=== PATIENT | female | born 2000 | race Two or more races ===

== ENCOUNTER 2025-09-07 20:09 | Emergency (ER) | payer MEDICAID, SELFPAY ==
[2025-09-07 20:10] VITALS: BMI 26.5
[2025-09-07 20:14] VITALS: BP 103/69; PULSE 99; RESP 16; TEMP 36.7; O2SAT 95
--- NOTE | 2025-09-07 20:21 | EDNOTE_ITS ---
ED Abdominal Pain RME/HPI General Chief Complaint: Abdominal Pain Stated complaint: ABD PAIN Time seen by provider: 09/07/25 20:20 Arrival date/time: 09/07/25 20:09 RME / HPI RME / HPI narrative: 24-year-old female with past medical history of , LMP 3 days ago, presents to the ER complaining of abdominal bloating for the past 3 days, patient has been passing gas without difficulty however this is on relieving, she had 1 bowel movement. Denies any fever, nausea, vomiting, abnormal vaginal discharge, dysuria. Related Data Previous Rx's ?Medication ?Instructions ?Recorded cephalexin 500 mg capsule 500 mg PO QID 7 days #28 cap s 09/07/25 Allergies Allergy/AdvReac Type Severity Reaction Status Date / Time No Known Allergies Allergy Verified 09/07/25 20:10 Course Quality Measures none Orders Category Date Time Status NPO NOW Care 09/07/25 20:23 Active Diet NPO (NOW) Diet 09/07/25 20:[address] abdomen pelvis wo con Stat Exams 09/07/25 20:23 Completed US abdomen limited Stat Exams 09/07/25 22:15 Completed CBC Stat Lab 09/07/25 20:28 Completed CMP [Comprehensive Metabolic Panel] Stat Lab 09/07/25 20:28 Completed HCG,Qualitative Serum Stat Lab 09/07/25 20:28 Completed Lipase Stat Lab 09/07/25 20:28 Completed Urinalysis Stat Lab 09/07/25 20:37 Completed Urine Culture Stat Lab 09/07/25 20:37 Received HYDROcodone*/APAP 5/325 [[place] 5/325] Med 09/07/25 22:26 Discontinued 1 tab PO X1 ONE Ketorolac Inj [Toradol Inj] Med 09/07/25 22:15 Discontinued 30 mg IM X1 ONE Simethicone [Mylicon Chew] Med 09/07/25 20:23 Discontinued 80 mg PO X1 ONE mg Hyd/Al Hyd/Janet Susp [Maalox Susp] Med 09/07/25 20:23 Discontinued 30 ml PO X1 ONE Reevaluation(s) Reevaluation #1: At the time of reassessment, the patient remains alert and oriented ?3 with GCS 15. Vitals are normal, pain is controlled, and the patient is tolerating oral intake without nausea or vomiting. The patient is agreeable to discharge and verbalizes understanding of the diagnosis, studies, treatment plan, medications (including side effects/precautions), and strict ER return precautions as d iscussed in the ED. All concerns were addressed, and the patient is comfortable with the plan. Time: 23:46 Vital Signs Vital signs: Vital Signs Temperature 98.1 F 09/07/25 20:14 Pulse Rate 99 09/07/25 20:14 Respiratory Rate 16 09/07/25 20:14 Blood Pressure 103/69 09/07/25 20:14 Pulse Oximetry (%) 95 09/07/25 20:14 Oxygen Delivery Method Room Air 09/07/25 20:14 Abdominal Pain MDM MDM Narrative MDM Narrative:: MDM: The patient presents with abdominal pain without definite explanation found on evaluation today. However, there are no signs of peritonitis or other life- threatening or serious etiology. UA concerning for mild pyuria with 6 WBCs cannot exclude cystitis after discussion of risk and benefits of antibiotics empirically with patient she requested treatment. CT and ultrasound also noted cholelithiasis with a normal appendix and no signs of acute cholecystitis or any other acute intra-abdominal or pelvic abnormality. Serial abdominal exams benign without peritonitis and patient tolerating p.o. without difficulty. I considered admission; however, given negative work up and imaging, admission is not indicated. The patient appears stable for discharge and has been instructed to return for re-evaluation immediately if the symptoms worsen or change in any way. If the symptoms are not resolved in 24-48 hours, the patient is asked to get rechecked by their PMD or return to the ED. Patient data External records reviewed:: [facility] previous records Clinical information provided by:: patient Social determinants that could affect healthcare access:: none Patient has the following chronic illnesses:: As noted How is presenting disease/condition affected by chronic disease/condition?: uneffected by Evaluation data The following diagnostics were reviewed and interpreted by me:: lab results, radiology exam(s) and other (specify) Lab and/or radiology exams considered but not ordered:: Additional Labs and radiology considered, but not ordered as they were not clinically indicated at this time. Interpretation Summary: CBC with mild leukocytosis of 12.2, neutrophil number mildly elevated 8.2, immature granulocytes noted at 0.02 however no left shift and remainder of CBC, CMP, lipase without severe metabolic or electrolyte abnormality UA concerning for 6 WBCs in the urine and cannot exclude UTI, risk and benefits of empiric antibiotics discussed with patient is requesting treatment Medications / Prescriptions Medications or Prescriptions considered but not ordered:: I considered prescription management (both outpatient prescriptions AND drug treatment in the ER) and decided that this was necessary and was prescribed as charted. Medication administrations:: Medication Administration History Discontinued Medications Hydrocodone Bitart/Acetaminophen (Hydrocodone/Apap 5/325 Tablet) 1 tab PO X1 ONE Stop: 09/07/25 22:27 Last Admin: 09/07/25 22:45 Dose: 1 tab Documented By: JACK Al Hydrox/Mg Hydrox/Simethicone (Mg Hyd/Al Hyd/Janet (Maalox Reg) Susp 30 Ml Udc) 30 ml PO X1 ONE Stop: 09/07/25 20:24 Last Admin: 09/07/25 21:51 Dose: Not Given Documented By: OA Non-Admin Reason: Held for Procedure Ketorolac Tromethamine (Ketorolac Inj 30 Mg/Ml Vial) 30 mg IM X1 ONE Stop: 09/07/25 22:16 Last Admin: 09/07/25 22:59 Dose: 30 mg Documented By: JACK Simethicone (Simethicone 80 Mg Chew) 80 mg PO X1 ONE Stop: 09/07/25 20:24 Last Admin: 09/07/25 21:51 Dose: Not Given Documented By: OA Non-Admin Reason: Held for Procedure As noted Consultations Consultation(s) initiated? (list below): No Diagnosis Differential diagnosis abdominal pain: abdominal pain, acute appendicitis and gastroenteritis Most likely diagnosis given after review of the tests above:: Abdominal pain of unclear etiology Admission Indicated Admission indicated?: not indicated Admission Request Was there a request for admission?: No Disposition Plan Disposition Plan: Discharge Discharge Attestation Discharge Attestation: The patient and all family members were given an opportunity to ask questions and understood the discharge instructions. Discharge instructions specifically effects, indications for sooner follow up or return to the emergency department, and the expected course of current diagnosis. Patient condition: Stable Discharge Plan Plan Patient Disposition: HOME (Self Care) Patient condition on transfer: Stable Prescriptions/Referrals Prescriptions/Med Rec: New cephalexin 500 mg capsule 500 mg PO QID 7 Days Qty: 28 0RF Referrals: Lindsey James PA-C [Primary Care Provider, Family Practice] - In 1 week Problem List Clinical Impression: Abdominal pain, Cholelithiasis, Pyuria Patient/Caregiver Discharge Instructions Education Materials: Abdominal Pain, Treating Gallstones, ED CYSTITIS Female Adult Additional Instructions: Follow up with your primary medical doctor within 24 hours. Return to the Emergency Room immediately for any new, worsening, continuing symptoms or any concerns at all. Return to the Emergency Room within 24 hours if you are unable to follow up with your primary medical doctor within 24 hours. Follow-up with a general surgeon within 1 week. Eat a bland diet. Do not eat fatty foods. Print Language: Vincentian Stand Alone Forms: [employer] Award Info., Patient Portal Info Letter PA/SANITATION OFFICER Supervising Physician PA/SANITATION OFFICER Supervising Physician: Dr. Patterson
--- NOTE | 2025-09-07 20:23 | XR_ITS ---
Examination: CT abdomen and pelvis without contrast. Coronal 3-D reconstructions. Sagittal 2-D reconstructions. Date and time of exam: September 07, 2025, 2142 hours INDICATIONS: Onset lower abdominal pain beginning 2 days ago CTDI: vol (mGy): 7.18 DLP: (mGycm): 360 Technique: Axial images of the abdomen have been obtained, 3 mm slice thickness Intravenous contrast material has not been administered. Low dose protocols were performed. One or more of the following dose reduction techniques were used; automated exposure control, adjustment of the mA and/or KV according to patient size, use of iterative reconstruction technique. Findings: No visualized liver or splenic lesion Gallstones Gallbladder wall appears thickened No pancreatic or adrenal mass No renal or ureteral calculi No bowel obstruction Normal appendix No diverticulitis No pelvic mass Bladder intact IMPRESSION: Cholelithiasis, recommend hepatobiliary sonography to exclude cholecystitis Negative for pancreatitis No renal or ureteral calculi, no hydronephrosis Normal appendix
[2025-09-07 20:37] LABS: Basophils # (Auto) 0.1 Thou/mm3 (0.0-0.2); Basophils % (Auto) 0 % (0-2.5); Eosinophils # (Auto) 0.1 Thou/mm3 (0.0-0.5); Eosinophils % (Auto) 1 % (0-10); Hematocrit 38.5 % (36.0-46.0); Hemoglobin 13.2 g/dL (12.0-16.0); Immature Granulocytes Auto 0.02 Thou/mm3 (0.00-0.00); Lymphocytes # (Auto) 3.0 Thou/mm3 (1.0-4.8); Lymphocytes % (Auto) 24 % (10-50); Mean Corpuscular HGB Conc 34.3 g/dl (31.0-37.0); Mean Corpuscular Hemoglobin 31.5 pg (25.0-35.0); Mean Corpuscular Volume 92 fL (80-100); Monocytes # (Auto) 0.8 Thou/mm3 (0.0-0.8); Monocytes % (Auto) 6 % (0-12); Neutrophils # (Auto) 8.2 Thou/mm3 (1.8-7.7); Neutrophils % (Auto) 68 % (37-80); Nucleated Red Blood Cell # 0.00 Thou/mm3 (0.00-0.00); Nucleated Red Blood Cell % 0 /100 WBC (0); Platelet Count 250 Thou/mm3 (140-440); RDW Standard Deviation 40.8 fL (36.4-46.3); Red Blood Count 4.19 Miln/mm3 (4.00-5.20); White Blood Count 12.2 Thou/mm3 (3.6-11.0)
[2025-09-07 20:48] LABS: Collection Type, Urine Voided
[2025-09-07 20:53] LABS: Bilirubin,Urine Negative (Negative); Blood,Urine Negative (Negative); Clarity,Urine Clear (Clear/Hazy); Color,Urine Lt-Yellow (Lt Yel-Yel); Glucose, Urine Negative (Negative); Ketones,Urine Negative (Negative); Leukocyte Esterase,Urine Positive (Negative); Nitrite,Urine Negative (Negative); PH,Urine 6.0 (5.0-7.0); Protein,Urine Negative (Neg - Trace); RBC,Urine 1 /hpf (0-3); Specific Gravity,Urine 1.016 (1.001-1.035); Squamous Epithelial Cell,Urine 3 /hpf (0-5); Urobilinogen,Urine Negative mg/dL (0.0-1.0); WBC,Urine 6 /hpf (0-5)
[2025-09-07 20:54] LABS: Alanine Aminotransferase 34 U/L (10-49); Albumin, Serum 4.8 gm/dL (3.5-5.0); Albumin/Globulin Ratio 2.4 (1.2-2.2); Alkaline Phosphatase 114 U/L (46-116); Anion Gap 8 (7-16); Aspartate Amino Transferase 31 U/L (0-34); BUN/Creatinine Ratio 11 Ratio (12-20); Bilirubin,Total 0.3 mg/dL (0.3-1.2); Blood Urea Nitrogen 9 mg/dL (9-23); Calcium 9.4 mg/dL (8.3-10.6); Calcium (Corrected) 9.4 mg/dL (8.5-10.1); Carbon Dioxide 28.0 mMol/L (20.0-31.0); Chloride 105 mMol/L (98-107); Creatinine (Component) 0.8 mg/dL (0.6-1.3); Estimated Creatinine Clearance 94.8 mL/min (>60); Globulin 2.0 gm/dL (2.3-3.5); Glucose 102 mg/dL (74-106); Lipase 24 U/L (12-53); Osmolality,Calculated 279 (275-295); Potassium 3.9 mMol/L (3.4-5.1); Sodium 141 mMol/L (136-145); Total Protein 6.8 gm/dL (5.7-8.2); eGFR > 60 See Note
[2025-09-07 20:56] LABS: HCG,Qualitative Serum Negative
--- NOTE | 2025-09-07 22:15 | XR_ITS ---
Examination: Abdomen sonogram, Limited Date and time of exam: September 07, 2025, 10:40 a.m. INDICATIONS: Epigastric pain today Technique: Real-time mckeon scale transabdominal sonographic images of the upper abdomen obtained. Findings: Multiple gallstones Gallbladder wall 0.35 cm no edema Common bile duct 0.3 cm Pancreatic head 1.3 cm Liver 11.1 cm no liver lesions Normal hepatopetal portal venous flow IMPRESSION: Cholelithiasis, negative for cholecystitis Normal common bile duct
[2025-09-07] MEDS: HYDROcodone/APAP 5/325 TABLET 1 TAB PO (22:45)
[2025-09-07] MEDS: KETOROLAC INJ 30 MG/ML VIAL IM (22:59)
[2025-09-08 00:15] VITALS: BP 118/77; PULSE 78
== END 2025-09-08 00:16 | disposition home or self-care (01) ==
PROVIDERS: Physician Assistant; Emergency Provider Emergency Medicine; PCP Physician Assistant
DX: K80.20 Calculus of gallbladder without cholecystitis without obstruction (principal)
CPT/HCPCS: 36415; 74176; 76705; 80053; 81001; 83690; 84703; 85025; 87077; 87086; 87186; 96372; 99283; J1885; A9270